=== PATIENT | female | born 1970 | race Two or more races ===

== ENCOUNTER 2016-04-26 10:28 | Emergency (ER) | payer MEDICAID, OTHER ==
[~2016-04-26] VITALS: Ht 165.1 cm; Wt 81.6 kg
[2016-04-26 11:08] VITALS: BP 113/86
== END 2016-04-26 11:38 | disposition home or self-care (01) ==
LOC: ER 10:32
DX: L03.031 Cellulitis of right toe (principal)

== ENCOUNTER 2018-01-04 14:54 | Emergency (ER) | payer MEDICAID ==
[~2018-01-04] VITALS: Ht 165.1 cm; Wt 81.6 kg
[2018-01-04 15:16] VITALS: BP 129/77
[2018-01-04 16:08] LABS: Urine Amorphous Crystal FEW /hpf (None Seen); Urine Bacteria FEW /hpf (None Seen); Urine Blood Negative /uL (Negative); Urine Mucus FEW (None Seen); Urine Specific Gravity 1.028 (1.001-1.035); Urine WBC 1 /hpf (0 - 5)
[2018-01-04 16:19] LABS: Basophils # (auto) 0.1 uL; Eosinophils # (auto) 0.1 uL; Eosinophils % (auto) 1.7 % (0.0-7.0); Hemoglobin 13.9 g/dL (12.2-16.2); Lymphocytes # (auto) 2.1 uL; Lymphocytes % (auto) 31.7 % (10.0-50.0); Mean Corpuscular Hemoglobin 31.9 pg (28.0-32.0); Mean Corpuscular Hgb Conc. 33.9 g/dL (32.0-36.0); Mean Corpuscular Volume 94.3 fL (80.0-100.0); Monocytes # (auto) 0.6 uL; Monocytes % (auto) 8.7 % (0.0-12.0); Neutrophils # (auto) 3.8 uL; Neutrophils % (auto) 56.9 % (37.0-80.0); Nucleated Red Blood Cells % 0.2 %; Platelet Count (auto) 218 10^3/uL (140-450); Red Blood Cells 4.35 10^6/uL (4.0-5.20); Red Cell Distribution Width 13.6 % (11.8-14.3); White Blood Cell 6.7 10^3/uL (4.4-10.8)
[2018-01-04 16:39] LABS: Albumin 3.6 g/dL (3.4-5.0); BUN/Creatinine Ratio 20.6; Bilirubin, Total 0.3 mg/dL (0.2-1.0); Calcium 8.2 mg/dL (8.5-10.1); Potassium 4.5 mmol/L (3.5-5.1); Total Protein 7.2 g/dL (6.4-8.2)
== END 2018-01-04 17:29 | disposition home or self-care (01) ==
LOC: ER 14:54
DX: K58.9 Irritable bowel syndrome, unspecified (principal)
CPT/HCPCS: 36415; 74176; 80053; 81001; 83690; 85025; 93005